=== PATIENT | male | born 1990 | race Caucasian/White ===

== ENCOUNTER 2018-04-13 07:58 | Day surgery (SDC) | payer OTHER ==
[~2018-04-13 07:58] MED LIST: Buffered Lidocaine 0.9% SYRIN* 5 ML/SYR SYRINGE INTRADERM ONE; Dexamethasone IV* 4 MG/ML 1 ML (4 MG) IV SLOW PU ONE; Dexamethasone IV* 4 MG/ML 1 ML (4 MG) ONE; Famotidine IV* 10 MG/ML 2 ML (20 mg) IV ONE; Famotidine IV* 10 MG/ML 2 ML (20 mg) ONE; Midazolam* 1 MG/ML 2 ML VIAL (2 MG) ONE; fentaNYL* 50 MCG/ML 2 ML VIAL (100 MCG VIAL) ONE
[2018-04-13] MEDS ORDERED: Ketorolac INJ* 30 MG/ML 1 ML VIAL ONE ×2 (08:12→11:12)
[2018-04-13] MEDS ORDERED: ceFAZolin 2 GM PREMIX (*) 2 GM/50 ML BAG IVPB ONE (08:42)
[2018-04-13] MEDS ORDERED: Bupivacaine 0.5% SDV PF* 30ML VIAL ONE (09:24)
[2018-04-13] MEDS ORDERED: Bupivacaine 0.25% SDV* 30 ML ONE (09:25)
[2018-04-13] MEDS ORDERED: Ondansetron ODT TAB* 4 MG PO PRN (10:19)
[2018-04-13] MEDS ORDERED: fentaNYL* 50 MCG/ML 2 ML VIAL (100 MCG VIAL) IV PRN (10:19)
[2018-04-13] MEDS ORDERED: Naloxone* 0.4 MG/ML 1 ML VIAL IV PRN (10:19)
[2018-04-13] MEDS ORDERED: Propofol* 10 MG/ML 20 ML BTL IV PUSH ONE (11:12)
[2018-04-13] MEDS ORDERED: Metoclopramide IV* 5 MG/ML 2 ML VIAL ONE (11:12)
[2018-04-13] MEDS ORDERED: HYDROcodone/ACETAMIN 5-325 MG* 1 TAB ONE (11:21)
[2018-04-13 11:48] VITALS: BP 128/72
--- NOTE | 2018-04-13 15:42 | OP ---
DATE OF OPERATION: 04/13/18 - [facility] DATE OF : 86 SURGEON: Campbell Maravilla MD. CAT CRACKER OPERATOR: ROLF Story. An commercial loan assistant was needed for the procedure to aid in positioning of the arm and retraction. ANESTHESIOLOGIST: Dr. Johnson. ANESTHESIA: General. PRE-OP DIAGNOSIS: Left radial styloid degenerative joint disease. POST-OP DIAGNOSIS: Left radial styloid degenerative joint disease. OPERATIVE PROCEDURE: Left wrist radial styloidectomy. INDICATIONS: Neftaly is 27 years old. He had a scaphoid malunion. The bone did heal, but he has gone on to have radial styloid impingement and DJD. He is point tender at the radial styloid and has pain on the radial side of the wrist with use. X-rays showed the malunion and the DJD. We talked about risks and benefits including the risk of ulnar translocation of the carpus. He wanted to proceed with surgery. ESTIMATED BLOOD LOSS: 2 mL. COMPLICATIONS: None. FINDINGS: As expected. DESCRIPTION OF PROCEDURE: Neftaly was seen in the preoperative holding area. The correct side, site and procedure were identified. We came back to the operating room where the right arm was prepped and draped in the usual fashion. A time-out was performed. The arm was exsanguinated with the Esmarch and the tourniquet inflated to 250 mmHg. I made a 2 to 3 cm longitudinal incision in the interval between the first and second dorsal compartment. Dissection was carried down. The superficial radial nerve was mobilized volarly. The soft tissue interval between the first and second dorsal compartments was incised and subperiosteal flaps were raised to expose the radial styloid. I marked off my osteotomy and confirmed it with the mini C-arm. I then used the sagittal saw to perform the osteotomy placing a [place] elevator between the scaphoid and radius to preserve the articular cartilage on the scaphoid. I then checked the mini C-arm, looked like I needed to take just a little bit more, so I took a little bit more. Care was taken not to take so much as to detach the radioscaphocapitate ligament. Once I liked my osteotomy on the mini C-arm, I irrigated out the wound. The bone wax was used to obtain hemostasis in the cancellous bone. The capsule was closed over the osteotomy together with the retinaculum. The wound was irrigated out. Skin was closed with 4-0 Monocryl and Steri-Strips. A short arm splint was applied. He was woken up and taken to the recovery room in stable condition. [id number]/[facility] [place] #: [id number] GALE
--- NOTE | 2018-04-14 14:51 | RAD ---
INDICATION: Left wrist, M 25.532 COMPARISONS: March 17, 2018 TECHNIQUE: Fluoroscopy was provided for a surgical procedure. Total fluoroscopy time is: 18 seconds FINDINGS: A single spot image is submitted of the wrist. IMPRESSION: FLUOROSCOPY WAS PROVIDED FOR A SURGICAL PROCEDURE CPT II Codes: G9500
== END 2018-04-13 11:56 | disposition home or self-care (01) ==
LOC: OREAST 07:58
PROVIDERS: ATTEND Orthopaedic Surgery Hand Surgery
DX: M19.142 Post-traumatic osteoarthritis, left hand (principal); M77.12 Lateral epicondylitis, left elbow; Z87.891 Personal history of nicotine dependence; F41.8 Other specified anxiety disorders; M19.90 Unspecified osteoarthritis, unspecified site; K21.9 Gastro-esophageal reflux disease without esophagitis; K58.9 Irritable bowel syndrome, unspecified; Z68.30 Body mass index [BMI] 30.0-30.9, adult
CPT/HCPCS: 76000; 88304; 88311; J0690; J1100; J1885; J2250; J2704; J2765; J3010

== ENCOUNTER 2018-12-21 22:26 | Emergency (ER) | payer OTHER ==
--- OUTSIDE RECORDS SUMMARY | 2018-12-21 22:42 | XMS REPORT | Continuity of Care Document ---
:1990 External Reference #:[id number] Author Name Aarti Alvarez NP Address [address] [place] [address] Care Team Providers Name Role Phone Bernardo Altman MD Care Team Information Night Baker Unavailable Bernardo Altman MD Primary Care Physician Unavailable Payers Date Identification Numbers Payment Provider Subscriber Policy Number: [id number] [place] [employer] Marcin Dickens Group Number: [id number] [address] PayID: [id number] [place] [address] Advance Directives Description No Information Available Problems Date Description Provider Status Onset: 01/26/2017 Irritable bowel syndrome Bernardo Altman M.D. Active Onset: 01/26/2017 Gastroesophageal reflux disease Bernardo Altman M.D. Active Family History Date Family Member(s) Observation Comments Paternal Grandfather Diabetes Mellitus, II Maternal Grandfather Cerebrovascular Accident (CVA) Maternal Grandfather Hypertension Maternal Grandmother Dementia Maternal Grandmother Cervical Cancer Social History Type Date Description Comments Sex Unknown Lives With Spouse Work Status Full-Time Employment Tobacco Use Start: Unknown End: Former Cigarette Smoker 2 up to 6 years Packs Daily ETOH Use Rare Tobacco Use Start: Unknown End: Patient is a former Unknown smoker Smoking Status Reviewed: 12/20/18 Patient is a former smoker Exercise Type/Frequency Exercises regularly Rock climber Allergies, Adverse Reactions, Alerts Description No Known Drug Allergies Medications Medication Date Status Form Strength Qnty SIG Indications Ordering Provider Pantoprazole 01/25/ Active Tablets DR 40mg 30tabs take one Carrol Sodium 2014 tablet by kirstin Mederos CARTON COUNTER FEEDER every day Testosterone 01/25/ Active Solution 100mg/ml .75ml Unknown Cypionate 2009 qweek Ondansetron 11/30/ Hx Tablets 4mg 10tabs 1 by mouth A09 Bernardo Kamara 2018 - Dispers every 8 Darlow, 12/20/ hours as M.D. 2018 needed for nausea Ventolin HFA 10/28/ Hx Aerosol 108(90Base 18gm take 1-2 J11.1 Farzana Reyes 2016 - ) mcg/Act puffs Flaquito, 02/05/ inhaled ROUGH RIB GRADER 2017 every 4 hours as needed for wheezing or tightness in the chest No Active 01/26/ Hx Unknown Medications 2016 - 2016 Hydroxyzine 01/26/ Hx Tablets 25mg 90tabs 1/2 or 1 Bernardo A. HCL 2016 - by mouth Darlow, 10/28/ at bedtime M.D. 2016 as needed for sleep Benadryl 08/27/ Hx Tablets 25mg 2 by mouth Unknown Allergy 2015 - every 10/28/ night at 2017 bedtime Atarax 01/25/ Hx 1 po qhs Unknown 2012 - 2016 Melatonin 01/25/ Hx Capsules 3mg one at Unknown 2012 - bedtime 2016 Immunizations CPT Code Status Date Vaccine Lot # [id number] Given 01/26/2017 Tdap Tetanus, W Pertussis [id number] Vital Signs Date Vital Result Comment 12/20/2018 4:18pm BP Systolic 120 mmHg BP Diastolic 82 mmHg Heart Rate 81 /min Body Temperature 98.2 F Respiratory Rate 16 /min Height 70.75 inches 5'10.75" measured 01/26/17 Weight 215.00 lb BMI (Body Mass Index) 30.2 kg/m2 11/30/2018 4:20pm BP Systolic 124 mmHg BP Diastolic 80 mmHg Heart Rate 67 /min Body Temperature 98.1 F Respiratory Rate 16 /min O2 % BldC Oximetry 98 % Height 70.75 inches 5'10.75" measured 01/26/17 Weight 219.00 lb BMI (Body Mass Index) 30.8 kg/m2 09/27/2018 2:44pm BP Systolic 128 mmHg BP Diastolic 82 mmHg Heart Rate 52 /min Body Temperature 98.6 F Respiratory Rate 12 /min Height 70.75 inches 5'10.75" measured 01/26/17 Weight 219.00 lb BMI (Body Mass Index) 30.8 kg/m2 03/07/2018 9:56am BP Systolic 100 mmHg BP Diastolic 64 mmHg Heart Rate 76 /min Body Temperature 98.2 F Respiratory Rate 16 /min Height 70.75 inches 5'10.75" measured 01/26/17 Weight 215.00 lb BMI (Body Mass Index) 30.2 kg/m2 10/28/2017 11:35am BP Systolic 132 mmHg BP Diastolic 86 mmHg Heart Rate 80 /min Body Temperature 99.2 F Respiratory Rate 18 /min O2 % BldC Oximetry 98 % Height 70.75 inches 5'10.75" measured 01/26/17 Weight 208.00 lb BMI (Body Mass Index) 29.2 kg/m2 01/26/2017 2:55pm BP Systolic 122 mmHg BP Diastolic 80 mmHg Heart Rate 56 /min Body Temperature 98.8 F Respiratory Rate 16 /min Height 70.75 inches 5'10.75" measured 01/26/17 Weight 205.25 lb BMI (Body Mass Index) 28.8 kg/m2 Results Test Date Facility Test Result H/L Range Note Ua - Micro (a) 12/19/2018 [facility] Medicine Appearance clear (607)- - Color yellow Glucose, Urine (Fma/CMC/CTX) neg Bilirubin neg Ketones neg SP Grav 1.020 Blood trace # PH 6.5 Protein neg Urobil 0.2 Nitrite neg Leukocytes (Fma/CMC/Centrex) neg Hyaline - /Lpf Granular - /Lpf WBC (Fma,Centrex) 0-2 # RBC 0-2 # Mucus (Fma/CBC/Centrex) - /Lpf Epith - /Lpf Bacteria - /Hpf Amorphous (Fma/CMC/Centrex) rare /Lpf # Crystals, Fluid (Fma/CMC/CTX) - Z#Comments - Ova & Parasites Full 12/01/2018 [facility] Parasitic Exam, See Comment 1 Result O P: 12/01/2018 [facility] O P: SEE RESULT 2 Giardia/Cryptospor Giardia/Cryptosp BELOW Screen or Screen Laboratory test 12/01/2018 [facility] Stool Culture SEE RESULT 3 finding BELOW Comprehensive 11/30/2018 [facility] (a) Sodium 140 mEq/L 134-14 Metabolic Prof 9 Potassium 3.9 mEq/L 3.6-5.5 Chloride 108 mEq/L 94-112 Carbon Dioxide 28 mEq/L 21-32 Glucose 79 mg/dL 70-105 BUN 13 mg/dL 6-26 Creatinine 1.0 mg/dL 0.6-1.4 BUN/Creat Ratio 13.0 CALC 8.0-36.0 Calcium 9.2 mg/dL 8.6-10.2 Total Protein 7.5 g/dL 6.4-8.3 Albumin 4.8 g/dL 3.8-5.5 Globulin 2.7 g/dL 2.0-4.8 A/G Ratio 1.8 CALC 0.6-2.3 Alk. Phosphatase 64 U/L 22-95 Alt (SGPT) 20 U/L 7-35 Ast (Sgot) 10 U/L 5-34 Total Bilirubin 0.8 mg/dL 0.2-1.3 GFR Non- >60 ml/min/1.73m^ >=60 GFR >60 ml/min/1.73m^ >=60 Urine Culture And 11/30/2018 [facility] Urine Culture SEE RESULT 4 Sensitivities BELOW Ua - Micro ([facility]) 11/30/2018 [facility] Medicine Appearance CLEAR (607)- - Color YELLOW Glucose, Urine (Fma/CMC/CTX) NEG Bilirubin NEG Ketones NEG SP Grav >=1.030 Blood TRACE-INTACT # PH 5.5 Protein NEG Urobil 0.2 Nitrite NEG Leukocytes (Fma/CMC/Centrex) NEG Hyaline - /Lpf Granular - /Lpf WBC ([facility]rex) 0-1 # RBC 0-1 # Mucus - /Lpf Epith - /Lpf Bacteria - /Hpf Amorphous - /Lpf Crystals, Fluid (Fma/CMC/CTX) - Z#Comments - CBC Electronic ([facility]) 11/30/2018 [facility] WBC 7.32 4.0-10.0 (607)- - RBC 5.21 3.93-6.0 Hemoglobin (Fma/CMC/CTX) 15.8 g/dL 12.0-17.0 Hematocrit (Fma/CMC/CTX) 45.4 % 35.0-50.0 Mean Corpuscular Vol 87.1 fL 80-95 Mean Corpuscular Hemoglobin 30.3 pg 25.6-32.2 Mean Corpuscular Hemo Concen 34.8 g/dL 32.2-36.0 Platelets 209 10^3/ul 163-400 RDW-CV 12.2 11.6-14.4 Mean Platelet Volume 9.6 fL 8.0-12.4 Absolute Neutrophils BLD 4.23 1.56-6.13 Absolute Lymphocytes 2.38 1.18-3.74 Absolute Monocytes BLD Auto 0.38 0.24-0.82 Absolute Eos Blood 0.29 0.04-0.54 Absolute Basophils 0.03 0.01-0.08 Neutrophil % 57.8 % 34.0-70.0 Lymph% 32.5 % 20.0-52.0 Monocytes % 5.2 % 5.0-12.0 Eos % 4.0 % 0.7-7.0 Basophil% 0.4 % 0-1.2 Comprehensive Metabolic 02/27/2018 Ahmet Rupal (a) Sodium 141 mEq/L 134-149 Prof Potassium 4.1 mEq/L 3.6-5.5 Chloride 103 mEq/L 94-112 Carbon Dioxide 27 mEq/L 21-32 Glucose 110 mg/dL High 70-105 BUN 16 mg/dL 6-26 Creatinine 0.8 mg/dL 0.6-1.4 BUN/Creat Ratio 20.0 CALC 8.0-36.0 Calcium 9.7 mg/dL 8.6-10.2 Total Protein 7.3 g/dL 6.4-8.3 Albumin 4.8 g/dL 3.8-5.5 Globulin 2.5 g/dL 2.0-4.8 A/G Ratio 1.9 CALC 0.6-2.3 Alk. Phosphatase 71 U/L 22-95 Alt (SGPT) 20 U/L 7-35 Ast (Sgot) 11 U/L 5-34 Total Bilirubin 1.0 mg/dL 0.2-1.3 GFR Non- >60 ml/min/1.73m^ >=60 GFR >60 ml/min/1.73m^ >=60 Lipid Profile 02/27/2018 Ahmet Rupal (a) Cholesterol 200 mg/dL 120- 200 Triglycerides 110 mg/dL 30-200 HDL Cholesterol 39 mg/dL 30-70 LDL (Calculated) 139 CALC High 0-129 VLDL Cholesterol 22 mg/dL 0-50 HDL Risk Factor 5.1 CALC High 0.0-4.4 CBC Electronic Fma 02/27/2018 Ahmet Rupal (a) WBC 6.2 x10^3/UL 4.0- 10.0 RBC 5.42 x10^6/UL 3.93-6.00 HGB 16.3 g/dL 12.0-17.0 HCT 46 % 35-50 MCV 85.4 fL 80.0-95.0 MCH 30.1 pg 25.6-32.2 MCHC 35.2 g/dL 32.2-36.0 RDW-CV 11.9 % 11.6-14.4 PLT 211 x10^3/UL 163-400 MPV 10.3 fL 9.4-12.4 Rustam# 3.56 x10^3/UL 1.56-6.13 Lymph# 2.03 x10^3/UL 1.18-3.74 Valencia# 0.31 x10^3/UL 0.24-0.82 Eos # 0.3 x10^3/UL 0.0-0.5 Baso # 0.04 x10^3/UL 0.01-0.08 Rustam% 57.5 % 34.0-70.0 Lymph % 32.7 % 20.0-52.0 Valencia% 5.0 % 5.0-12.0 Eos% 4.0 % 0.7-7.0 Baso% 0.6 % 0.1-1.2 Testosterone, Free 02/20/2018 [facility] Testosterone, 411 ng/dL 264-916 5 , 6 And Total [address] [facility] [place] [place] [address] (607)- - Free Testosterone(Direct) 8.1 pg/mL Low 9.3-26.5 Laboratory test 02/20/2018 [facility] Sex Horm 37.6 nmol/L 16.5-55.9 finding [address] [facility] Binding Glob, [place] [address] Serum (607)- - Comprehensive 02/17/2018 Leo Rupal (Fma) Sodium 140 mEq/L 134-149 Metabolic Prof Potassium 3.9 mEq/L 3.6-5.5 Chloride 102 mEq/L 94-112 Carbon Dioxide 27 mEq/L 21-32 Glucose 100 mg/dL 70-105 BUN 13 mg/dL 6-26 Creatinine 0.9 mg/dL 0.6-1.4 BUN/Creat Ratio 14.4 CALC 8.0-36.0 Calcium 9.6 mg/dL 8.6-10.2 Total Protein 7.5 g/dL 6.4-8.3 Albumin 4.7 g/dL 3.8-5.5 Globulin 2.8 g/dL 2.0-4.8 A/G Ratio 1.7 CALC 0.6-2.3 Alk. Phosphatase 70 U/L 22-95 Alt (SGPT) 16 U/L 7-35 Ast (Sgot) 10 U/L 5-34 Total Bilirubin 0.6 mg/dL 0.2-1.3 GFR Non- >60 ml/min/1.73m^ >=60 GFR >60 ml/min/1.73m^ >=60 Laboratory test 02/17/2018 [facility] Hematocrit 45.1 % 35.0-50.0 finding (607)- - (Fma/CMC/CTX) Laboratory test 02/17/2018 [facility] Estradiol 9.6 pg/mL 7.6-42.6 7, 8 finding [address] [place] [address] (607)- - Testosterone, 02/17/2018 [facility] Testosterone, 416 ng/dL 264-916 9 Free And Total [address] [facility] [place] [place] [address] (607)- - Free Testosterone(Direct) 6.6 pg/mL Low 9.3-26.5 Laboratory test 02/17/2018 [facility] Sex Horm 38.5 nmol/L 16.5-55.9 finding [address] [facility] [address] [place], [place] [address] Serum (607)- - Comprehensive 02/14/2017 Leo Rupal (Fma) Sodium 138 mEq/L 134-149 Metabolic Prof Potassium 4.6 mEq/L 3.6-5.5 Chloride 105 mEq/L 94-112 Carbon Dioxide 31 mEq/L 21-32 Glucose 102 mg/dL 70-105 BUN 15 mg/dL 6-26 Creatinine 0.9 mg/dL 0.6-1.4 BUN/Creat Ratio 16.7 CALC 8.0-36.0 Calcium 9.2 mg/dL 8.6-10.2 Total Protein 7.1 g/dL 6.4-8.3 Albumin 4.6 g/dL 3.8-5.5 Globulin 2.5 g/dL 2.0-4.8 A/G Ratio 1.8 CALC 0.6-2.3 Alk. Phosphatase 64 U/L 22-95 Alt (SGPT) 14 U/L 7-35 Ast (Sgot) 10 U/L 5-34 Total Bilirubin 0.6 mg/dL 0.2-1.3 GFR Non- >60 ml/min/1.73m^ >=60 GFR >60 ml/min/1.73m^ >=60 Complete Blood Count 02/14/2017 Leo Rupal (Fma) WBC 5.7 x10^3/UL 3.6-9.6 RBC 5.46 x10^6/UL 3.90-5.70 HGB 16.6 g/dL 12.1-17.2 HCT 49 % 36-50 MCV 89.0 fL 82.2-97.4 MCH 30.4 pg 27.6-33.3 MCHC 34.1 g/dL 33.0-35.5 RDW 12.6 % 11.6-13.7 PLT 212 x10^3/UL 150-400 MPV 7.1 fL Low 7.4-10.4 Gran # 3.7 x10^3/UL 1.5-7.2 Lymph# 1.9 x10^3/UL 0.7-4.9 Valencia# 0.1 x10^3/UL 0.1-0.9 Gran % 62.4 % 42.2-75.2 Lymph % 34.3 % 20.5-51.1 Valencia% 3.3 % 1.7-9.3 Laboratory test 02/14/2017 [facility] Estradiol <40 pg/mL N Less Than 10 finding 50 Testosterone Free & 02/14/2017 [facility] Free Testosterone 24.4 ng/dL Abnormal 5.05-19.8 11 Total ng/dl Testosterone 872 ng/dL N 240-950 12 Laboratory test finding 02/14/2017 [facility] Sex Hormone Binding 32 nmol/L N 10 -57 13 Globulin Estradiol, Confirmatory, S 44 pg/mL Abnormal 10-40 14 1 SOURCE: STOOL PARASITIC EXAMINATION FINAL No parasites seen. Cryptosporidium, Cyclospora, and microsporidia are not readily detected by this method. Single negative specimen does not rule out parasitic infection. Test Performed by: [facility] [address] [address] 2 SEE RESULT BELOW Name: MARCIN DICKENS : [address]: Bernardo Altman MD Acct: [id number] Unit: [id number] AGE: 28 Location: [facility] Re12/01/18 SEX: U Status: REG REF SPEC: [id number] FIDELIA: 12/01/[address]: Bernardo Altman MD REQ: [id number] RECD: 12/01/18 STATUS: COMP _ SOURCE: STOOL SPDESC: ORDERED: O P: Giar/Crypt Procedure Result Reported Site O P: Giardia/Cryptospor Screen Final 12/04/18- 1245 ML Organism 1 Neg Cryptosporidium/Giardia * ML - Main Lab . END OF REPORT DEPARTMENT OF PATHOLOGY, [address] [place] [address] Panda Ellis M.D. Director [facility] # [id number] 3 SEE RESULT BELOW Name: MARCIN DICKENS : [address]: Bernardo Altman MD Acct: [id number] Unit: [id number] AGE: 28 Location: [facility] Re12/01/18 SEX: U Status: REG REF SPEC: [id number] FIDELIA: 12/01/18-[address]: Bernardo Altman MD REQ: [id number] RECD: 12/01/18 STATUS: COMP _ SOURCE: STOOL SPDESC: ORDERED: Stool Culture Procedure Result Reported Site Stool Culture Final 12/03/18- 1248 ML Result No enteric pathogens isolated Testing for Salmonella, Shigella, Aeromonas, Plesiomonas, Yersinia and Campylobacter are included in a Stool Culture. Vibrio spp not routinely tested for in a stool culture. If testing is desired, please request specifically when placing test order. Sensitivities not routinely performed on stool isolates, as antibiotics may prolong the carriage rate of bacteria. Please contact the microbiology lab if sensitivities are required. Stool Specimen Description Final 12/01/18- 1446 ML Stool Color Brown Stool Form Formed Stool Consistency Firm Shiga Toxin 1 2 Final 12/04/18- 1128 ML Organism 1 Negative Shiga Toxin 1 2 Immunochromatographic Assay * ML - Main Lab . END OF REPORT DEPARTMENT OF PATHOLOGY, [address] [place] [address] Panda Ellis M.D. Director [facility] # [id number] 4 SEE RESULT BELOW Name: MARCIN DICKENS : [address]: Bernardo Altman MD Acct: [id number] Unit: [id number] AGE: 28 Location: [facility] Re11/30/18 SEX: U Status: REG REF SPEC: [id number] FIDELIA: 11/30/[address]: Bernardo Altman MD REQ: [id number] RECD: 11/30/18 STATUS: COMP _ SOURCE: URINE SPDESC: ORDERED: Urine Culture COMMENTS: [id number] [facility] URINE VACUTAINER Urine Source: Random Procedure Result Reported Site Urine Culture Final 12/01/18- 1620 ML No Growth (<1,000 CFU/mL) * ML - Main Lab . END OF REPORT DEPARTMENT OF PATHOLOGY, [address] [place] [address] Panda Ellis M.D. Director [facility] # [id number] 5 1 sst 6 Adult male reference interval is based on a population of healthy nonobese males (BMI <30) between 19 and 39 years old. Irina et.al. JCEM 2017,102;7994-2082. PMID: 81507399. 7 1SST 8 Varinder ECLIA methodology 9 Adult male reference interval is based on a population of healthy nonobese males (BMI <30) between 19 and 39 years old. Travfrannie, et.al. JCEM 2017,102;0144-5370. PMID: 52574472. 10 Estradiols <40 pg/mL are sent to a reference lab for low range testing. 11 ADDITIONAL INFORMATION Testing performed by [facility]. This test was developed and its performance characteristics determined by [facility] in a manner consistent with CLIA requirements. This test has not been cleared or approved by the U.S. Food and Drug Administration. 12 ADDITIONAL INFORMATION Testing performed by Liquid Chromatography-Tandem Mass Spectrometry (LC-MS/MS). This test was developed and its performance characteristics determined by [facility] in a manner consistent with CLIA requirements. This test has not been cleared or approved by the U.S. Food and Drug Administration. Test Performed by: [facility] - [address] [address] 13 Test Performed by: [facility] - [address] [address] 14 ADDITIONAL INFORMATION This test was developed and its performance characteristics determined by [facility] in a manner consistent with CLIA requirements. This test has not been cleared or approved by the U.S. Food and Drug Administration. Test Performed by: [facility] - [address] [address] Procedures Date Code Description Status 03/07/2018 70071 CPHL SHQ Completed 10/28/2017 33217 Pulse Oximetry Completed Encounters Type Date Location Provider Dx Diagnosis Office Visit 11/30/2018 Main Office Bernardo Altman, A09 Infectious 3:50p M.DBryson gastroenteritis and colitis, unspecified R31.29 Other microscopic hematuria Office Visit 09/27/2018 2:00p [facility] Office Carrol M25.541 Pain in joints Rosa M, C[employer] COUNTER FEEDER of right hand Office Visit 03/07/2018 9:20a [facility] Office Bernardo Altman, Z00.01 Encounter for Elly general adult medical exam w abnormal findings M25.569 Pain in unspecified knee M25.532 Pain in left wrist L98.9 Disorder of the skin and subcutaneous tissue, unspecified K21.9 Gastro-esophageal reflux disease without esophagitis F64.0 Transsexualism Office Visit 10/28/2017 11:30a [facility] Office Farzana Reyes J11.1 Flu due to OSMANY [place] unidentified influenza virus w oth resp manifest R05 Cough Office Visit 01/26/2017 Gracie Kamara K21.9 Gastro-esophageal 3:00p Office Elly Altman reflux disease without esophagitis K58.8 Other irritable bowel syndrome L60.0 Ingrowing nail Z23 Encounter for immunization E34.9 Endocrine disorder, unspecified Plan of Treatment 12/20/2018 - Aarti Alvarez, NPR31.29 Other microscopic hematuriaComments: following up with the pbxrxyonkD37.30 Lower abdominal pain, unspecifiedNew Xrays :CT Abdomen & Pelvis W/O Contrast, Ordered: 12/20/18Comments:probiotics for the bloating - Align or Culturelle will get CT if not improving or worsening - PswhhnnfgbtpcrM77.9 Gastro-esophageal reflux disease without esophagitisComments :The patient was instructed to call if symptoms worsened. improving with the pantoprazoleAllComments:~B_~U_Medication Management~b_~u_ Patient Understands medications he 's taking? Yes No Are there Barriers to Adherence? Yes No Has the patient been asked about herbal supplements and therapies, and OTC meds? Yes No ~B_~U_Care Plan~b_~u_1. Patient has been queried about patient's goals/preferences and functional/lifestyle goals at relevant visits. If relevant, describe: na2. Treatment goals as explained to the patient: above3. Are there barriers to meeting treatment goals? Yes No If Yes, please describe:4. Self-Management goals as described to the patient:Yes NoAs always, we strongly encourage a healthy diet and making physical activity a part of your every day life. If you have questions about how or where to start, please contact the office.
[2018-12-22] MEDS ORDERED: Ondansetron INJ* 2 MG/ML VIAL IV ONE (00:42)
[2018-12-22] MEDS ORDERED: Ketorolac INJ* 30 MG/ML 1 ML VIAL IV PUSH ONE (00:42)
[2018-12-22] MEDS ORDERED: NS 0.9% 1000 ML** 1,000 ML IV ONE (00:42)
[2018-12-22 00:53] LABS: ABS Basophils 0.1 10^3/ul (0-0.2); ABS Eosinophils 0.3 10^3/ul (0-0.6); ABS Lymphocytes 2.9 10^3/ul (1.0-4.8); ABS Monocytes 0.4 10^3/ul (0-0.8); ABS Neutrophils 3.5 10^3/ul (1.5-7.7); ABS Nucleated RBC 0 10^3/ul; Eosinophil % 4.5 %; Hematocrit 45 % (42-52); Hemoglobin 15.8 g/dl (14.0-18.0); Lymphocyte % 40.3 %; Mean Corpuscular HGB Conc 35 g/dl (31-36); Mean Corpuscular Hemoglobin 31 pg (27-31); Mean Corpuscular Volume 87 fL (80-94); Mean Platelet Volume 8.6 fL (7.4-10.4); Nucleated Red Blood Cells % 0.2; Platelet Count 207 10^3/ul (150-450); Red Blood Count 5.18 10^6/ul (4.00-5.40); Red Cell Distribution Width 13 % (10.5-15); White Blood Count 7.1 10^3/ul (3.5-10.8)
[2018-12-22 01:05] LABS: Urine Appearance Cloudy; Urine Bacteria Absent (Absent); Urine Bilirubin Negative (Negative); Urine Blood Negative (Negative); Urine Color Yellow; Urine Glucose Negative (Negative); Urine Ketones Negative (Negative); Urine Nitrite Negative (Negative); Urine Protein Negative (Negative); Urine Red Blood Cell Trace(0-2/hpf) (Absent); Urine Specific Gravity 1.021 (1.010-1.030); Urine Squamous Epithelial Cell Present (Absent); Urine Urobilinogen Negative (Negative); Urine White Blood Cell 1+(6-10/hpf) (Absent)
--- NOTE | 2018-12-22 01:07 | ED ---
GI/ HPI - HPI Summary HPI Summary: 28-year-old male presents with right lower quadrant pain today. He states the past week he's having intermittent abdominal pain diarrhea nausea vomiting. He states that he was seen his primary and they did a stool culture and they noticed that he had microscopic hematuria. He states he was seen 2 days ago and he still had hematuria. He has been admits to urinary pressure and frequency. he states occasionally radiates to flank pain. No fevers. No chest pain or shortness breath. Has never had this pain before. Has a history of IBS but states that this feels different. - History of Current Complaint Chief Complaint: EDAbdPain Time Seen by Provider: 12/22/18 00:33 Stated Complaint: ABD PAIN Pain Intensity: 8 - Allergy/Home Medications Allergies/Adverse Reactions: Allergies Allergy/AdvReac Type Severity Reaction Status Date / Time No Known Allergies Allergy Verified 12/21/18 22:34 PMH/Surg Hx/FS Hx/Imm Hx Endocrine/Hematology History: Denies: Hx Anticoagulant Therapy Cardiovascular History: Denies: Hx Myocardial Infarction Infectious Disease History: No Infectious Disease History: Denies: Traveled Outside the [place] in Last 30 Days - Family History Known Family History: Positive: Non-Contributory - Social History Substance Use Type: Reports: None Smoking Status (MU): Never Smoked Tobacco Review of Systems Negative: Fever Negative: Chest Pain Negative: Shortness Of Breath Positive: Abdominal Pain, Vomiting, Diarrhea, Nausea Positive: frequency, urgency All Other Systems Reviewed And Are Negative: Yes Physical Exam Triage Information Reviewed: Yes Vital Signs On Initial Exam: Initial Vitals Temp Pulse Resp BP Pulse Ox 98.4 F 72 16 144/92 98 12/21/18 22:29 12/21/18 22:29 12/21/18 22:29 12/21/18 22:29 12/21/18 22:29 Vital Signs Reviewed: Yes Appearance: Positive: Well-Appearing Skin: Positive: Warm, Dry Head/Face: Positive: Normal Head/Face Inspection Eyes: Positive: Normal, Conjunctiva Clear ENT: Positive: Pharynx normal Respiratory/Lung Sounds: Positive: Clear to Auscultation, Breath Sounds Present Cardiovascular: Positive: Normal, RRR Abdomen Description: Positive: Soft, Other: - tenderness right lower quadrant Bowel Sounds: Positive: Present Musculoskeletal: Positive: Normal Neurological: Positive: Normal Psychiatric: Positive: Normal Diagnostics - Vital Signs Vital Signs Temp Pulse Resp BP Pulse Ox 12/21/18 22:29 98.4 F 72 16 144/92 98 - Laboratory Lab Results: Lab Results 12/22/18 12/22/18 Range/Units 00:43 00:44 WBC 7.1 (3.5-10.8) 10^3/ul RBC 5.18 (4.00-5.40) 10^6/ul Hgb 15.8 (14.0-18.0) g/dl Hct 45 (42-52) % MCV 87 (80-94) fL MCH 31 (27-31) pg MCHC 35 (31-36) g/dl RDW 13 (10.5-15) % Plt Count 207 (150-450) 10^3/ul MPV 8.6 (7.4-10.4) fL Neut % (Auto) 49.2 % Lymph % (Auto) 40.3 % [place] % (Auto) 5.2 % Eos % (Auto) 4.5 % Baso % (Auto) 0.8 % Absolute Neuts (auto) 3.5 (1.5-7.7) 10^3/ul Absolute Lymphs (auto) 2.9 (1.0-4.8) 10^3/ul Absolute Monos (auto) 0.4 (0-0.8) 10^3/ul Absolute Eos (auto) 0.3 (0-0.6) 10^3/ul Absolute Basos (auto) 0.1 (0-0.2) 10^3/ul Absolute Nucleated RBC 0 10^3/ul Nucleated RBC % 0.2 Urine Color Yellow Urine Appearance Cloudy Urine pH 5.0 (5-9) Ur Specific [place] 1.021 (1.010-1.030) Urine Protein Negative (Negative) Urine Ketones Negative (Negative) Urine Blood Negative (Negative) Urine Nitrate Negative (Negative) Urine Bilirubin Negative (Negative) Urine Urobilinogen Negative (Negative) Ur Leukocyte Esterase 2+ A (Negative) Urine WBC (Auto) 1+(6-10/hpf) A (Absent) Urine RBC (Auto) Trace(0-2/hpf) (Absent) Ur Squamous Epith Cells Present A (Absent) Urine Bacteria Absent (Absent) Urine Glucose Negative (Negative) Result Diagrams: 12/22/18 00:43 12/22/18 00:43 Lab Statement: Any lab studies that have been ordered have been reviewed, and results considered in the medical decision making process. GIGU Course/Dx - Course Course Of Treatment: 28-year-old male presents with right lower quadrant pain today. He states the past week he's having intermittent abdominal pain diarrhea nausea vomiting. He states that he was seen his primary and they did a stool culture and they noticed that he had microscopic hematuria. He states he was seen 2 days ago and he still had hematuria. He has been admits to urinary pressure and frequency. he states occasionally radiates to flank pain. No fevers. No chest pain or shortness breath. Has never had this pain before. Has a history of IBS but states that this feels different. On exam tenderness greatest in the right lower quadrant. Positive Rovsing's. no CVA tenderness. wbc normal. CRP normal. Urine shows potentially a UTI so we'll treat with Rocephin. Patient signed out to Dr. Hughes pending CT for disposition. - Diagnoses Differential Diagnoses - Male: Appendicitis, Ureteral Calculi, Urinary Tract Infection Provider Diagnoses: Abdominal pain, UTI (urinary tract infection) Discharge - Sign-Out/Discharge Documenting (check all that apply): Sign-Out Patient Signing out patient TO: Js Hughes Patient Received Moderate/Deep Sedation with Procedure: No - Discharge Plan Condition: Good Disposition: HOME Prescriptions: Sulfamethox/Trimethoprim DS* [Bactrim DS 800/160 TAB*] 1 tab PO BID #14 tab Patient Education Materials: Urinary Urgency and Frequency (DC) Referrals: Bernardo Altman MD [Primary Care Provider] - - Billing Disposition and Condition Condition: GOOD Disposition: Home
[2018-12-22 01:09] LABS: ALT 16 U/L (7-52); Albumin 4.6 g/dL (3.2-5.2); Albumin/Globulin Ratio 1.7 (1-3); Alkaline Phosphatase 64 U/L (34-104); BUN/Creatinine Ratio 16.1 (8-20); Blood Urea Nitrogen 15 mg/dL (6-24); C Reactive Protein < 1.00 mg/L (<8.01); CO2 Carbon Dioxide 29 mmol/L (22-32); Chloride 106 mmol/L (101-111); EGFR African American 115.4 (>60); EGFR Non-African American 95.4 (>60); Globulin 2.7 g/dL (2-4); Glucose 95 mg/dL (70-100); Sodium 140 mmol/L (135-145); Total Protein 7.3 g/dL (6.4-8.9)
[2018-12-22] MEDS ORDERED: cefTRIAXone(*) 1 GM in NS 0.9% 50 ML* 50 ML IVPB ONE (01:27)
[2018-12-22 01:32] LABS: AST 12 U/L (13-39); Anion Gap 5 mmol/L (2-11); Potassium 3.9 mmol/L (3.5-5.0)
[2018-12-22] MEDS ORDERED: Iohexol 300* (CONTRAST) 10 ML SDV IV ONE ×2 (02:57→03:15)
[2018-12-22] MEDS ORDERED: Morphine VIAL* 4 MG/ML VIAL (1 ml vial) IV ONE (03:52)
--- NOTE | 2018-12-22 03:54 | ED ---
Progress - Progress Note Progress Note: This patient was signed out from ROLF Baldwin, to Dr. Hughes pending CT abdomen/pelvis. Abdomen/pelvis CT impression: No acute abnormality. ED physician has reviewed this imaging report. This patient will be discharged with a prescription for bactrim and is agreeable with this plan. Course/Dx - Course Course Of Treatment: This patient was signed out from ROLF Baldwin, to Dr. Hughes pending CT abdomen/pelvis. As it turns out he is transgender, female to male and has not had surgery so phenotypically female and thus diagnosis of UTI is much more likely. CT is negative, will treat for presumptive UTI. Abdomen/pelvis CT impression: No acute abnormality. ED physician has reviewed this imaging report. This patient will be discharged with a prescription for Bactrim and is agreeable with this plan. - Diagnoses Provider Diagnoses: Abdominal pain, UTI (urinary tract infection) Discharge - Sign-Out/Discharge Documenting (check all that apply): Patient Departure - DC, Receiving Sign-Out Receiving patient FROM: Carrol Cornelius Patient Received Moderate/Deep Sedation with Procedure: No - Discharge Plan Condition: Good Disposition: HOME Prescriptions: Sulfamethox/Trimethoprim DS* [Bactrim DS 800/160 TAB*] 1 tab PO BID #14 tab Patient Education Materials: Urinary Urgency and Frequency (DC) Referrals: Bernardo Altman MD [Primary Care Provider] - - Billing Disposition and Condition Condition: GOOD Disposition: Home - Attestation Statements Document Initiated by Girish: Yes Documenting Scribe: Andrea Mendez Provider For Whom Girish is Documenting (Include Credential): Js Hughes MD Scribe Attestation: IAndrea, scribed for Js Hughes MD on 12/25/18 at 1613. Scribe Documentation Reviewed: Yes Provider Attestation: The documentation as recorded by the Andrea dawn accurately reflects the service I personally performed and the decisions made by me, Js Hughes MD Status of Scribe Document: Viewed
[2018-12-22] MEDS ORDERED: Sulfamethox/Trimethoprim DS 800/160* TAB PO ONE (05:36)
[2018-12-22 05:51] VITALS: BP 131/88
== END 2018-12-22 05:50 | disposition home or self-care (01) ==
LOC: ED 22:26 → MERGE 22:26 → ED 12-22 05:50
DX: R10.31 Right lower quadrant pain (principal); N39.0 Urinary tract infection, site not specified; R11.2 Nausea with vomiting, unspecified; R19.7 Diarrhea, unspecified
CPT/HCPCS: 36415; 74177; 80053; 81003; 81015; 83690; 85025; 86140; 87086; 96365; 96375; 99283; A9270-GY; J0696; J1885; J2270; J2405; Q9967

== ENCOUNTER 2019-04-16 07:26 | Day surgery (SDC) | payer OTHER ==
[~2019-04-16 07:26] MED LIST changes: -Buffered Lidocaine 0.9% SYRIN* 5 ML/SYR SYRINGE INTRADERM ONE; +Buffered Lidocaine 1% SYRIN* 1 ML/SYRINGE INTRADERM ONE; -Dexamethasone IV* 4 MG/ML 1 ML (4 MG) IV SLOW PU ONE; -Dexamethasone IV* 4 MG/ML 1 ML (4 MG) ONE; -Famotidine IV* 10 MG/ML 2 ML (20 mg) IV ONE; -Famotidine IV* 10 MG/ML 2 ML (20 mg) ONE; +Lactated Ringers 1000 ML Bag* 1,000 ML IV SCH; -Midazolam* 1 MG/ML 2 ML VIAL (2 MG) ONE; -fentaNYL* 50 MCG/ML 2 ML VIAL (100 MCG VIAL) ONE
[2019-04-16] MEDS ORDERED: ceFAZolin 2 GM in NS PREMIX(*) 2 GM/100 ML BAG IVPB ONE (07:39)
[2019-04-16] MEDS ORDERED: Propofol* 10 MG/ML 20 ML BTL ONE (07:55)
[2019-04-16] MEDS ORDERED: Lidocaine 2% PF * 5 ML VIAL ONE (07:55)
[2019-04-16] MEDS ORDERED: Midazolam* 1 MG/ML 2 ML VIAL (2 MG) ONE (07:58)
[2019-04-16] MEDS ORDERED: fentaNYL* 50 MCG/ML 2 ML VIAL (100 MCG VIAL) ONE (07:58)
[2019-04-16] MEDS ORDERED: Ropivacaine 0.2% * 2 MG/ML VIAL ONE (08:31)
[2019-04-16] MEDS ORDERED: Lidocaine 1% w EPI 1:200,000* 30 ML VIAL ONE (08:31)
[2019-04-16] MEDS ORDERED: Ketorolac INJ* 30 MG/ML 1 ML VIAL ONE (09:05)
[2019-04-16] MEDS ORDERED: Ondansetron INJ* 2 MG/ML VIAL ONE (09:05)
[2019-04-16] MEDS ORDERED: Metoclopramide IV* 5 MG/ML 2 ML VIAL ONE (09:05)
[2019-04-16] MEDS ORDERED: Dexamethasone IV* 4 MG/ML 1 ML (4 MG) ONE (09:05)
[2019-04-16] MEDS ORDERED: Acetaminophen TAB* 325 MG PO PRN (09:28)
[2019-04-16] MEDS ORDERED: DiMENhydriNATE IV* 50 MG/ML VIAL IV PUSH PRN (09:28)
[2019-04-16] MEDS ORDERED: Naloxone* 0.4 MG/ML 1 ML VIAL IV PRN (09:28)
[2019-04-16] MEDS: HYDROmorphone INJ1* 1 MG/ML SYRINGE IV PRN ×5 (10:16→11:08)
[2019-04-16] MEDS ORDERED: HYDROmorphone INJ1* 1 MG/ML SYRINGE ONE (10:16)
[2019-04-16] MEDS ORDERED: Acetaminophen TAB* 325 MG ONE (10:48)
[2019-04-16] MEDS ORDERED: oxyCODONE/Acetamin 5/325 MG* TAB ONE (10:48)
[2019-04-16 13:37] VITALS: BP 119/81
--- NOTE | 2019-04-17 09:51 | OP ---
CC: PCP OPERATIVE REPORT: DATE OF OPERATION: 04/16/19 DATE OF : 86 SURGEON: Pepper Felix MD. INSTRUMENTATION INSTRUCTOR: None available. 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 OPERATIVE PROCEDURE: Left knee arthroscopy with: 1. Patellar chondroplasty. 2. Synovectomy of the medial, lateral and anterior compartments. COMPLICATIONS: None. ESTIMATED BLOOD LOSS: Minimal. INDICATIONS: Neftaly Dickens is a 28-year-old male with persistent severe left knee pain. He had some cartilage damage under his patella. He has failed conservative management including physical t herapy, antiinflammatories, ice, heat, and injections. He has elected to proceed with surgical treat ment. Risks and benefits included, but are not limited to bleeding, infection, damage to nerves; ves sels; surrounding structures, wound nonhealing, persistent pain, need for surgery, scarring, stiffnes s, incomplete relief of symptoms, risks of anesthesia. He has elected to proceed. DESCRIPTION OF PROCEDURE: The patient was greeted in the preoperative area by the attending surgeon. Correct extremity was marked and consent was confirmed. The patient was brought back to the operat tesfaye suite, where he was placed in the supine position on the operating table. He then underwent gene ral anesthesia and LMA intubation, after which he was appropriately positioned on the bed. An unster ile tourniquet was placed high on the proximal thigh. A post was positioned. The left leg was then prepped and draped in the usual sterile fashion beginning with chlorhexidine soap, scrub, and alcohol wipe, and a final prep of ChloraPrep. After appropriate surgical pause indicating side, site, and procedure, administration of antibiotics, the knee was intra-articularly injected with 1% lidocaine with epi. The anterolateral portal was ma de sharply with the 11 blade. The scope was introduced through the joint. The joint was examined. T he ACL and PCL were intact. The anterior and medial portals were made in an outside fashion. Small l igamentum was removed using shaver. There was no evidence of loose body or loose debris floating. T he medial compartment was examined. There were grade 0 to 1 changes in the medial femoral condyle an d medial plateau. The medial meniscus was intact. There were no loose debris or fraying. The knee was placed in figure- 4 position. The lateral compartment was examined, grade 0 to 1 changes of the lateral femoral condyle and lateral plateau. The meniscus was intact and no need for any kind of parth ridement for any fraying. The knee was then placed in full extension. The gutters were examined and found to be intact of any loose debris. The patellofemoral joint was examined. The trochlea had gra de 0 changes. About the very medial portion, there was a small flap of chondrosis with grade 2 lamas es, but the vast majority had grade 0 to 1 changes. The shaver was used to gently debride this back to a stable layer. Scope was changed positions turning the lateral to the medial portal to make sure this was visualized carefully. There was no evidence of any further unstable flaps once the debride ment was complete. This was a pretty small area at the very rim of the patella. There was synovitis present with plicas medially and laterally. These were debrided back using annette. The electrocau margareth device was used to maintain hemostasis. Once the synovectomy was thoroughly completed, the knee was thoroughly irrigated and lavaged. The wounds were copiously irrigated with sterile saline. Por tals were closed with 3-0 nylon. Sterile dressings were applied. The knee was intraarticularly and superficially injected with 0.2% ropivacaine. Sterile dressings were applied and Cryo/Cuff. He was awoken from anesthesia and transferred to the PACU in stable condition. POSTOPERATIVE PLAN: He will be weightbearing as tolerated with crutches for 3 to 5 days. Discharged on pain medications. DVT prophylaxis was considered, but deferred due to no previous or personal api healthcare history. He will be discharged on pain medication and weaned off. He is unable to take NSAIDs due to GERD and IBS. I will see the patient back in 10 to 14 days. [id number]/[facility] #: [id number]
== END 2019-05-28 12:35 | disposition home or self-care (01) ==
LOC: OR 07:26
PROVIDERS: ATTEND Orthopaedic Surgery
DX: M22.41 Chondromalacia patellae, right knee (principal); M22.42 Chondromalacia patellae, left knee; M25.462 Effusion, left knee; K58.9 Irritable bowel syndrome, unspecified; K21.9 Gastro-esophageal reflux disease without esophagitis; F41.9 Anxiety disorder, unspecified; Z87.891 Personal history of nicotine dependence
CPT/HCPCS: A9270-GY; J0690; J1100; J1170; J1885; J2001; J2250; J2405; J2704; J2765; J2795; J3010

== ENCOUNTER → 2019-05-28 08:38 | Day surgery (SDC) | payer OTHER ==
[~2019-05-28 08:38] MED LIST changes: +Acetaminophen TAB* 325 MG ONE; +Acetaminophen TAB* 325 MG PO PRN; +Dexamethasone IV* 4 MG/ML 1 ML (4 MG) ONE; +DiMENhydriNATE IV* 50 MG/ML VIAL IV PUSH PRN; +DiMENhydriNATE IV* 50 MG/ML VIAL ONE; +Famotidine IV* 10 MG/ML 2 ML (20 mg) IV ONE; +Famotidine IV* 10 MG/ML 2 ML (20 mg) ONE; +Ketorolac INJ* 30 MG/ML 1 ML VIAL ONE; +Lidocaine 1% w EPI 1:200,000* SDV 30 ML VIAL ONE; +Lidocaine 2% PF * 5 ML VIAL ONE; +Midazolam* 1 MG/ML 5 ML VIAL (5 MG) ONE; +Naloxone* 0.4 MG/ML 1 ML VIAL IV PRN; +Ondansetron INJ* 2 MG/ML VIAL ONE; +Propofol* 10 MG/ML 20 ML BTL ONE; +Ropivacaine 0.2% * 2 MG/ML VIAL ONE; +ceFAZolin 2 GM in NS PREMIX(*) 2 GM/100 ML BAG IVPB ONE; +fentaNYL* 50 MCG/ML 2 ML VIAL (100 MCG VIAL) ONE; +oxyCODONE ORAL.SOLN* 5 MG/5 ML UDC ONE
[2019-05-28] MEDS: oxyCODONE TAB* 5 MG TAB PO PRN ×2 (11:37→12:10)
--- NOTE | 2019-05-28 12:59 | OP ---
DATE OF OPERATION: 05/28/19 - [facility] DATE OF : 86. SURGEON: Pepper Felix MD. NET LEAD ARCHITECT: None available. PRE-OP DIAGNOSIS: Right knee patellar chondrosis and synovitis. POST-OP DIAGNOSIS: Right knee patellar chondrosis and synovitis. OPERATIVE PROCEDURE: 1. Right knee arthroscopy with extensive synovectomy including anterior, medial , lateral synovectomy. 2. Patellar chondroplasties. 3. Partial lateral meniscectomy. COMPLICATIONS: None. ESTIMATED BLOOD LOSS: Minimal. INDICATIONS: Neftaly Dickens is a 28-year-old male who has persistent knee pain refractory to conservative management. We did a previous synovectomy and chondroplasty on his contralateral side, which he responded to very well. He has elected to proceed with surgical treatment. Risks and benefits were discussed at length, which include but not limited to bleeding; infection; damage to nerves, vessels, surrounding structures; wound nonhealing; persistent pain, need for surgery; scarring; stiffness; incomplete relief of symptoms; risks of anesthesia. DESCRIPTION OF PROCEDURE: The patient was greeted in the preoperative area by the attending surgeon. Correct extremity was marked and consent was confirmed. The patient was brought back to the operative suite, where he was placed in the supine position on the operating table. He then underwent general anesthesia and LMA intubation, after which a lateral post was positioned. The unsterile tourniquet was placed high on the proximal thigh. The right leg was then prepped and draped in the usual sterile fashion beginning with chlorhexidine soap, scrub, and alcohol wipe, and a final prep with ChloraPrep. After appropriate surgical pause indicating side, site, and procedure, administration of antibiotics, the knee was intra-articularly injected with 1% lidocaine with epi. The anterolateral portal was made sharply with the 11 blade. The scope was introduced through the joint. The joint was examined. There was an abundant synovitis that was present. There was thick dense tissue. The anteromedial portal was made in an outside-in fashion. The shaver was brought in to remove the significant synovitis. [place] medially and laterally were identified. The electrocautery device was used to maintain hemostasis at all times. The trochlea was visualized and found to have minimal wear. The ACL and PCL were intact. The medial and lateral gutters, once the synovitis was complete, were visualized and found to be intact without any loose debris. The medial compartment had grade 0 to 1 changes with normal meniscus. The lateral compartment was visualized. There were a small flap from the root of the meniscus that was apparent. This was then debrided back using a shaver. The remaining meniscus was intact. Once this was complete, the knee was placed in full extension and the patellofemoral joint was examined. The undersurface of the patella had a small unstable flap that was debrided back and this actually extended quite a bit laterally and there were grade 2 changes with unstable flaps. Any unstable flaps were debrided back and left to preserve as much normal cartilage as possible. Final images were obtained. The wounds were copiously irrigated, any loose debris was removed from the knee and thoroughly lavaged. The wounds were closed with 3-0 nylon in interrupted fashion. Sterile dressings were applied. A Cryo/Cuff was applied. He was awoken from anesthesia and transferred to the PACU in stable condition. POSTOPERATIVE PLAN: He will be in crutches for 3 to 5 days. Discharged on pain medications. Range of motion as tolerated. I will see the patient back in about 2 weeks. DVT prophylaxis was considered, but deferred due to no previous personal or family history . [id number]/[facility] #: [id number] HOSPITALDaphne
[2019-05-28 13:50] VITALS: BP 130/80
== END | disposition home or self-care (01) ==
LOC: OREAST 08:38
PROVIDERS: ATTEND Orthopaedic Surgery
DX: M22.41 Chondromalacia patellae, right knee (principal); M65.861 Other synovitis and tenosynovitis, right lower leg; M23.200 Derangement of unspecified lateral meniscus due to old tear or injury, right knee; Z87.891 Personal history of nicotine dependence; K21.9 Gastro-esophageal reflux disease without esophagitis; K58.9 Irritable bowel syndrome, unspecified; F41.8 Other specified anxiety disorders
CPT/HCPCS: A9270-GY; J0690; J1100; J1240; J1885; J2001; J2250; J2405; J2704; J2795; J3010